=== PATIENT | female | born 1975 | race Caucasian/White ===

== ENCOUNTER → 2016-06-26 | Outpatient (CLI) | payer BC ==
[~2016-06-26] MED LIST: ALEVE220 MG PO; AMITRIPTYLINE H25 M2 PO; APAP500 PO; CELEBREX 200 M200 MG PO; HYDROCODONE-AP1 EAC6 PO; IBUPROFEN 400400 M1 PO; METHADONE HCL 110 M1 PO; SERTRALINE HCL50 MG PO; TOPAMAX 25 MG T25 M1 PO; VERAPAMIL ER120 MG PO; XANAX 0.5 MG0.5 MG PO
== END ==
LOC: CAT 13:50
DX: R10.32 Left lower quadrant pain (principal)

== ENCOUNTER → 2016-06-30 | Outpatient (CLI) | payer BC | LOC: ULTRA 09:51 | DX: R10.2 Pelvic and perineal pain (principal); Z90.710 Acquired absence of both cervix and uterus ==

== ENCOUNTER → 2017-10-02 | Outpatient (CLI) | payer BC | LOC: RAD 01:38 → EDSTATUS 17:27 → RAD 17:30 | DX: Z12.31 Encounter for screening mammogram for malignant neoplasm of breast (principal) ==

== ENCOUNTER → 2018-10-08 | Outpatient (CLI) | payer BC | LOC: RAD 02:59 | DX: Z12.31 Encounter for screening mammogram for malignant neoplasm of breast (principal) ==

== ENCOUNTER → 2019-04-01 | Outpatient (CLI) | payer BC ==
[~2019-04-01] VITALS: Ht 157.5 cm; Wt 81.4 kg
[~2019-04-01] MED LIST changes: +AMITRIPTYLINE H10 M3 PO; +FLEXERIL PO; +HYDROCHLOROTHIA25 M1 PO; +IMITREX100 MG PO; +MOBIC15 MG PO
[2019-04-01 08:58] VITALS: BP 136/75
--- NOTE | 2019-04-01 08:59 | NUR ---
Pain Clinic Assessment: 1. History of Osteoarthritis: Not Applicable History of Rheumatoid Arthritis: Not Applicable 2. Height: 5 ft. 2 in. 157.5 cm. Weight: 179.4 lb. oz. 81.375 kg. Patient's BMI: 32.8 3. Vital Signs: BP: 136/75 Pulse: 78 Resp: 19 Temp: 02 Sat: 100 ECG Mon: 4. Pain Intensity: 8 5. Fall Risk: Dizziness: N Needs help standing or walking: N Fallen in the last 3 months: N Fall risk comments: 6. Patient on Blood Thinner: None 7. History of Hypertension: Y 8. Opioid Therapy greater than 6 weeks: Y Opiate Contract Signed: 9. Risk Assessment Tool Provided: 10. Functional Assessment Tool: 70/70 11. Recreational Drug Use: Never Drug Type: Tobacco Use: Never Smoker Tobacco Type: Amount or Packs/day: How Many Years: Alcohol Use: Yes Frequency: Monthly Quant: 3
--- NOTE | 2019-04-15 08:25 | HPC ---
[facility] [address] [place] [address] PAIN MANAGEMENT CONSULTATION Name: LEROY STEPHENSN Room #: REG SHANNONCory Joy#: [id number] Admission: 04/01/19 Attend Phys: Viridiana Kee MD Discharge: Date of : 79 Report #: [id number] THIS REPORT FOR: //name// CC: Viridiana Dudley DATE OF SERVICE: 04/01/2019 CHIEF COMPLAINT: Return of pain in the cervical area. HISTORY: The patient is a 44-year-old female who has been seen in the pain clinic in the past because of cervical radiculopathy. She has undergone epidural steroid injections and gleaned benefits from these. She has noticed a worsening of her pain, which has increased. It involves her upper neck and radiates down into her arms. She also notes some discomfort in the thoracic area. She has been using pain medications to help quell the pain. She is trying to decrease the use of these medications. She notes that the pain has worsened over the last 6 months. Describes it as sharp and constant. Rates it as an 8/10. It increases with movement activity and improves with use of her medications. The patient has considered options and she is to undergone cervical epidural steroid injection at this point. The patient feels that the mid back pain is most problematic at this juncture and that is the area of emphasis today. ALLERGIES: ASPIRIN, SHRIMP. CURRENT MEDICATIONS: Hydrochlorothiazide 25 mg, Imitrex 100 mg, hydrocodone 5/325 one p.o. b.i.d., verapamil 120 mg and Topamax 25 mg. PAST MEDICAL HISTORY: Anemia and hypertension. PAST SURGICAL HISTORY: Gastric bypass, hysterectomy, tubal ligation, shoulder arthroscopy, gallbladder surgery and cervical radiculopathy, left arm and hand. PAIN CLINIC ASSESSMENT AND PQRS: 1. History of osteoarthritis. The patient is not being treated for rheumatoid arthritis. She has had some arthritic changes involving her shoulder. 2. Height 5 feet 2 inches, weight 179 pounds, BMI is 32.8. 3. Vital Signs: Blood pressure 136/75, pulse 78, respiratory rate 19, room air saturation 100%. 4. Pain intensity 8/10. 5. Fall history. The patient is not fallen in the last 3 months. 6. Blood thinner. The patient is not on a blood thinning medication. 7. Hypertension. The patient is being treated for hypertension. 8. Opioids greater than 6 weeks. The patient received [place] [address] PAIN MANAGEMENT CONSULTATION Name: LEROY STEPHENS Room #: REG [facility]#: [id number] Admission: 04/01/19 Attend Phys: Viridiana Kee MD Discharge: Date of : 79 Report #: [id number] 9. Risk assessment low for opioid use. 10. Functional assessment tool, 70/70. 11. Recreational drug use: The patient denies. 12. Tobacco: The patient has never smoked. 13. Alcohol: The patient drinks about 3 alcoholic beverages monthly. PHYSICAL EXAMINATION: GENERAL: The patient is a well-developed, well-nourished white female. Appears her stated age. She is alert and oriented x 3. Affect is appropriate. Speech is fluent. HEENT: Normocephalic, atraumatic. Extraocular eye muscles intact. Sclerae nonicteric. Mucous membranes are moist. NECK: Without adenopathy or JVD. The patient has pain and discomfort in the upper extremity. Complains of some pain and discomfort with pain that radiates down to her left arm. LUNGS: Generally clear to auscultation. ABDOMEN: Nontender. EXTREMITIES: Upper extremity muscle strength judged to be generally 5-/5 for the major muscle groups in the upper extremity and 5/5 for the major muscle groups in the lower extremity. IMPRESSION: 1. Cervical radiculopathy, which has involved the left arm in the past. 2. Anemia. 3. Hypertension. RECOMMENDATIONS: We discussed the treatment options with the patient. At this point, we will proceed with conservative approach. The patient will try oral medications. She will try meloxicam 15 mg 1 p.o. daily. Hopefully, this nonsteroidal anti-inflammatory medication will be helpful in decreasing some of the cervical irritation. The patient will be given Elavil 10 mg 1 p.o. initially and increase this to 2 tablets at bedtime. Hopefully, this will help with the pain and nerve irritation as well. She will start with 10 mg and increase to 2 tablets of 20 mg. Possibility of increasing this as time goes on remains a possibility. Sometimes patients note lower levels of Elavil helpful and she will be mindful of the possible side effects, which could be dry mouth and sedation. She will be provided with Flexeril 10 mg 1 p.o. t.i.d. to help with muscle spasms. She will call us if she has any concerns. We would like to thank you for letting us participate in her care. We hope she continues to improve. <ELECTRONICALLY SIGNED> By: Viridiana Kee MD 04/15/19 0825 0910 [id number] Viridiana Kee MD /nt
== END ==
LOC: PAIN 07:00
DX: M54.12 Radiculopathy, cervical region (principal); I10 Essential (primary) hypertension; D64.9 Anemia, unspecified; Z79.891 Long term (current) use of opiate analgesic; Z79.899 Other long term (current) drug therapy

== ENCOUNTER → 2019-04-29 | Outpatient (CLI) | payer BC ==
[~2019-04-29] VITALS: Ht 157.5 cm; Wt 83.9 kg
[2019-04-29 08:37] VITALS: BP 121/75
--- NOTE | 2019-04-29 08:44 | NUR ---
Pain Clinic Assessment: 1. History of Osteoarthritis: DENIES History of Rheumatoid Arthritis: DENIES 2. Height: 5 ft. 2 in. 157.5 cm. Weight: 185.0 lb. oz. 83.916 kg. Patient's BMI: 33.8 3. Vital Signs: BP: 121/75 Pulse: 96 Resp: 14 Temp: 02 Sat: 100 ECG Mon: 4. Pain Intensity: 6 5. Fall Risk: Dizziness: N Needs help standing or walking: N Fallen in the last 3 months: N Fall risk comments: 6. Patient on Blood Thinner: None 7. History of Hypertension: Y 8. Opioid Therapy greater than 6 weeks: Y Opiate Contract Signed: 9. Risk Assessment Tool Provided: 10. Functional Assessment Tool: 70/70 11. Recreational Drug Use: Never Drug Type: Tobacco Use: Never Smoker Tobacco Type: Amount or Packs/day: How Many Years: Alcohol Use: Yes Frequency: Monthly Quant:
--- NOTE | 2019-05-03 09:25 | HPC ---
[facility] [address] [address] [place] [address] PAIN MANAGEMENT CONSULTATION Name: LEROY STEPHENS BEA Room #: REG Cory Joy#: [id number] Admission: 04/29/19 Attend Phys: Viridiana Kee MD Discharge: Date of : 79 Report #: [id number] THIS REPORT FOR: //name// CC: Viridiana Dudley DATE OF SERVICE: 04/29/2019 CHIEF COMPLAINT: The neck pain has continued to be helped with her current medications. HISTORY: The patient is a 44-year-old female who has been seen in the pain clinic because of cervical radiculopathy. Epidural steroid injections have been beneficial. She returns today indicating that she does have some pain in her lower back as well as in the thoracic area. It is intermittent. She rates her pain as a 6/10. She has found that use of meloxicam is helpful. The amitriptyline medication helps to improve her sleep. She finds that the Flexeril medication helps with muscle spasms. She feels that these medications are working reasonably well and would like to continue their use. She has returned to the pain clinic for evaluation and renewal of her prescriptions. ALLERGIES: ASPIRIN, SHRIMP. CURRENT MEDICATIONS: Hydrochlorothiazide 25 mg, Imitrex 100 mg, verapamil 120 mg, Topamax 25 mg. The patient has used hydrocodone 5 mg 1 p.o. b.i.d., Elavil 10 mg 2 tablets p.o. at bedtime, gabapentin 300 mg t.i.d., meloxicam 15 mg daily. PAIN CLINIC ASSESSMENT AND PQRS: 1. The patient denies problems with osteoarthritis and rheumatoid arthritis. 2. Height 5 feet 2 inches, weight 185 pounds, BMI is 33.8. 3. Vital signs: Blood pressure 121/75, pulse 96, respiratory rate 14, room air saturation 100%. 4. Pain intensity, 6/10. 5. Fall history, the patient has not fallen in the last 3 months. 6. Blood thinner, the patient is not on a blood thinning medication. 7. Hypertension, the patient is being treated for hypertension. 8. Opioids greater than 6 weeks. The patient is not on an opioid regimen on a regular basis. 9. Functional assessment tool, 70/70. 10. Recreational drug use, the patient denies. 11. Tobacco, the patient denies, has never smoked. 12. Alcohol, the patient rarely drinks alcoholic beverages. PHYSICAL EXAMINATION: GENERAL: The patient is a well-developed, well-nourished, [place] [address] PAIN MANAGEMENT CONSULTATION Name: LEROY STEPHENS Room #: REG [facility]#: [id number] Admission: 04/29/19 Attend Phys: Viridiana Kee MD Discharge: Date of : 79 Report #: [id number] female. Appears her stated age. She is alert and oriented x 3. Affect is appropriate. Speech is fluent. HEENT: Normocephalic, atraumatic. Extraocular eye muscles intact. Sclerae nonicteric. The patient has less pain and discomfort in her upper arms. LUNGS: Generally, clear to auscultation. ABDOMEN: Nontender. EXTREMITIES: Upper extremity muscle strength judged to be 5-/5 for the major muscle groups and 5/5 for the major muscle groups in the lower extremity. IMPRESSION: 1. History of cervical radiculopathy, which involves the left arm in the past. 2. Anemia. 3. Hypertension. RECOMMENDATIONS: We discussed treatment options with the patient. At this juncture, we will continue with our conservative approach. The patient will continue with the meloxicam 15 mg 1 p.o. daily. She feels that the nonsteroidal anti-inflammatory components are helpful. She feels that the Elavil medication is helpful as well. She continues to note some improvement in her sleep. The patient will continue with the gabapentin to help with its effect in decreasing nerve irritation and nerve pain. She will call us should she have any components. A 3-month schedule of medication has been written. We would like to thank you for letting us participate in her care. We hope she continues to improve. <ELECTRONICALLY SIGNED> By: Viridiana Kee MD 05/03/19 0925 0920 [id number] Viridiana Kee MD /[facility]
== END ==
LOC: PAIN 06:47
DX: M54.12 Radiculopathy, cervical region (principal); M79.602 Pain in left arm; D64.9 Anemia, unspecified; I10 Essential (primary) hypertension

== ENCOUNTER → 2019-11-09 | Outpatient (CLI) | payer BC | LOC: ULTRA 08:10 → BC 08:10 | DX: N63.10 Unspecified lump in the right breast, unspecified quadrant (principal) ==

== ENCOUNTER → 2021-02-19 | Outpatient (CLI) | payer BC | LOC: BC 09:07 → ULTRA 09:07 → BC 14:46 | PROVIDERS: ATTEND Family Medicine | DX: N63.20 Unspecified lump in the left breast, unspecified quadrant (principal); N63.10 Unspecified lump in the right breast, unspecified quadrant; R92.8 Other abnormal and inconclusive findings on diagnostic imaging of breast ==

== ENCOUNTER → 2021-02-26 | Outpatient (CLI) | payer BC ==
[2021-02-28 08:07] LABS: HEPATITIS B SURFACE AG Negative (Negative)
== END ==
LOC: LAB 15:22
PROVIDERS: ATTEND Internal Medicine
DX: D50.8 Other iron deficiency anemias (principal)

== ENCOUNTER → 2021-04-18 | Outpatient (CLI) | payer BC ==
[2021-04-18 10:04] LABS: BASOPHILS 0.6 % (0.0-2.0); EOSINOPHILS 5.3 % (0.0-3.0); HEMATOCRIT 38.8 % (37.0-47.0); HEMOGLOBIN 12.8 gm/dL (12.0-15.0); LYMPHOCYTES 38.3 % (24.0-44.0); MCH 26.2 pg (26.0-34.0); MCV 79.3 fL (80.0-100.0); PLATELET COUNT 313 thou/uL (150-400); POLYS 48.8 % (36.0-66.0); RBC 4.89 mil/uL (4.20-5.00); WBC 4.1 thou/uL (4.0-11.0)
[2021-04-18 10:19] LABS: % SATURATION 20 % (20-39); IRON 68 ug/dL (50-170); TIBC 345 ug/dL (250-450)
[2021-04-18 10:21] LABS: ALBUMIN 3.6 g/dL (3.4-5.0); CALCIUM 8.8 mg/dL (8.5-10.1); CREATININE 0.7 mg/dL (0.6-1.0); POTASSIUM 4.6 mmol/L (3.5-5.1); TOTAL BILIRUBIN 0.5 mg/dL (0.2-1.0); TOTAL PROTEIN 6.5 g/dL (6.4-8.2)
[2021-04-18 13:33] LABS: ANISOCYTOSIS 2+
== END ==
LOC: LAB 08:36
PROVIDERS: ATTEND Internal Medicine
DX: D50.8 Other iron deficiency anemias (principal)

== ENCOUNTER 2021-06-14 21:16 | Emergency (ER) | payer BC ==
[~2021-06-14] VITALS: Ht 157.5 cm; Wt 86.2 kg
[2021-06-14 21:24] VITALS: BP 165/102
[2021-06-14] MEDS ORDERED: PROMETHAZINE-D473 M1 PO (23:28)
== END 2021-06-15 00:50 | disposition home or self-care (01) ==
LOC: ER 21:16
DX: U07.1 COVID-19 (principal); J12.82 Pneumonia due to coronavirus disease 2019; Z98.51 Tubal ligation status; Z90.710 Acquired absence of both cervix and uterus; Z90.49 Acquired absence of other specified parts of digestive tract; Z98.890 Other specified postprocedural states; Z79.891 Long term (current) use of opiate analgesic; Z79.899 Other long term (current) drug therapy; Z88.6 Allergy status to analgesic agent; Z91.013 Allergy to seafood

== ENCOUNTER 2021-07-01 15:03 | Emergency (ER) | payer BC ==
[~2021-07-01] VITALS: Ht 157.5 cm; Wt 86.2 kg
[~2021-07-01 15:03] MED LIST changes: +PROMETHAZINE-D473 M1 PO
[2021-07-01 15:15] VITALS: BP 162/78
[2021-07-01 18:09] LABS: ABSOLUTE NEUTROPHILS 4.4 thou/uL (1.4-8.2); BASOPHILS 0.4 % (0.0-2.0); EOSINOPHILS 2.8 % (0.0-3.0); HEMATOCRIT 41.3 % (37.0-47.0); HEMOGLOBIN 13.6 gm/dL (12.0-15.0); LYMPHOCYTES 26.8 % (24.0-44.0); MCH 29.2 pg (26.0-34.0); MCHC 33.1 g/dL (28.0-37.0); MCV 88.4 fL (80.0-100.0); PLATELET COUNT 355 thou/uL (150-400); RBC 4.67 mil/uL (4.20-5.00); RDW 16.4 % (10.5-14.5); WBC 6.9 thou/uL (4.0-11.0)
[2021-07-01 18:19] LABS: CALCIUM 9.4 mg/dL (8.5-10.1); CREATININE 0.8 mg/dL (0.6-1.0); POTASSIUM 4.3 mmol/L (3.5-5.1)
[2021-07-01 18:28] LABS: ALBUMIN 3.7 g/dL (3.4-5.0); TOTAL BILIRUBIN 0.6 mg/dL (0.2-1.0)
--- NOTE | 2021-07-02 10:03 | EKG ---
[place] [address] [email or web address] [place] [address] ELECTROCARDIOGRAM REPORT Name: LEROY STEPHENS BEA [id number] Admission: 07/01/21 Attend Phys: Discharge: 07/01/21 Date of : 79 Report #: [id number] [facility] ED Test Date: 2021-07-01 Test Time: 18:07:27 Pat Name: LEROY STEPHENS Department: Room: Gender: F [employer] Inspector: RAUL : 1975 Requested By: Maria Antonia Burns Order Number: [id number] MD: Sukh Strickland Measurements Intervals [place] Rate: 90 P: 41 MO: 135 QRS: -19 QRSD: 86 T: 38 QT: 354 QTc: 433 Interpretive Statements Sinus rhythm Abnormal R-wave progression, late transition Inferior infarct, old No previous ECG available for comparison Electronically Signed On 07-02-2021 7:50:09 MANAGER THERAPY by Sukh Strickland [email or web address] <ELECTRONICALLY SIGNED> By: Sukh Strickland MD, [facility] 07/02/21 0750 1807 180 Sukh Strickland MD, FACC /EPI
== END 2021-07-01 19:08 | disposition home or self-care (01) ==
LOC: ER 15:03
PROVIDERS: Nurse Practitioner
DX: U09.9 Post COVID-19 condition, unspecified (principal); Z98.51 Tubal ligation status; Z90.710 Acquired absence of both cervix and uterus; Z90.49 Acquired absence of other specified parts of digestive tract; Z79.1 Long term (current) use of non-steroidal anti-inflammatories (NSAID); Z79.899 Other long term (current) drug therapy; Z88.6 Allergy status to analgesic agent; Z91.013 Allergy to seafood